=== PATIENT | male | born 1985 | race Caucasian/White ===

== ENCOUNTER → 2022-03-30 11:02 | Outpatient (CLI) | payer SELFPAY ==
[2022-03-30 12:15] LABS: Liquefaction Semen YES (YES); Sperm Count 90 x10^6/mL (20-150)
[2022-03-30 12:16] LABS: Sperm Morphology 50 %ABNORM (0-30); Sperm Motility 30% % Motile
== END ==
PROVIDERS: Referring Provider Nurse Practitioner Obstetrics & Gynecology; Visit Provider Nurse Practitioner Obstetrics & Gynecology
DX: Z31.41 Encounter for fertility testing (principal)
CPT/HCPCS: 89320